=== PATIENT | female | born 1995 | race Caucasian/White ===

== ENCOUNTER 2020-10-14 11:56 | Emergency (ER) | payer OTHER ==
[2020-10-14 12:12] VITALS: BP 114/77
[2020-10-14] MEDS ORDERED: cephALEXin 250 MG CAPSULE PO STA (12:15)
--- NOTE | 2020-10-14 12:16 | ED Physician Documentation ---
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 It is more itchy than painful. She has some body aches, but she says she is on her menses and that is not too atypical for her but is a little more than normal. No fevers. Review of Systems Constitutional: reports: Reviewed and negative Eyes: reports: Reviewed and negative Ears: reports: Reviewed and negative Nose: reports: Reviewed and negative PD PAST MEDICAL HISTORY - Past Medical History Past Medical History: Yes Psych: ADD/ADHD - Past Surgical History Past Surgical History: No - Present Medications Home Medications: Ambulatory Orders Medication Instructions Recorded Confirmed Dextroamphetamine/Amphetamine 15 mg PO BID 10/14/20 10/14/20 [Adderall 15 mg Tablet] cephALEXin [Keflex] 500 mg PO Q6H #28 cap 10/14/20 - Allergies Allergies/Adverse Reactions: Allergies Allergy/AdvReac Type Severity Reaction Status Date / Time No Known Drug Allergies Allergy Verified 10/14/20 12:11 - Social History Does the pt smoke?: No Smoking Status: Never smoker Does the pt drink ETOH?: No Does the pt have substance abuse?: No - Immunizations Immunizations are current?: Yes - POLST Patient has POLST: No PD ED PE NORMAL - Vitals Vital signs reviewed: Yes - General General: Alert and oriented X 3, No acute distress - Derm Derm: Other (There is a palm sized area of warmth and redness over the left deltoid without limited range of motion or axillary adenopathy.) - Neuro Neuro: Alert and oriented X 3, Normal speech Results - Vitals Vitals: Vital Signs - 24 hr 10/14/20 12:00 Temperature 36.8 C Heart Rate 70 Respiratory 16 Rate Blood Pressure 114/77 O2 Saturation 100 Oxygen O2 Source Room air Departure - Departure Disposition: 01 Home, Self Care Clinical Impression: Cellulitis Qualifiers: Site of cellulitis: extremity Site of cellulitis of extremity: upper extremity Laterality: left Qualified Code(s): L03.114 - Cellulitis of left upper limb Condition: Good Record reviewed to determine appropriate education?: Yes Instructions: Cellulitis Dc Prescriptions: cephALEXin [Keflex] 500 mg PO Q6H #28 cap Comments: As discussed, it is unclear if this is just an extended shot reaction or what is called cellulitis at this point. Return if worsening. I will leave it to you whether you get the second Covid shot, but I probably would under the circumstances if I were you.
== END 2020-10-14 12:23 | disposition home or self-care (01) ==
LOC: ED 11:56
DX: L03.114 Cellulitis of left upper limb (principal)
CPT/HCPCS: 99282; 99283; A9270